=== PATIENT | male | born 1965 | race African-American/Black ===

== ENCOUNTER 2022-08-04 05:12 | Day surgery (SDC) | payer BC ==
[2022-07-31 11:44] VITALS: BMI 24.7
[2022-08-04 10:39] VITALS: RESP 18
[2022-08-04] MEDS ORDERED: MIDAZOLAM HCL 2 MG/2 ML SINGLE DOSE VIAL ONE (13:04)
[2022-08-04] MEDS ORDERED: PROPOFOL 20 ML ONE (13:04)
[2022-08-04] MEDS ORDERED: KETOROLAC TROMETHAMINE 30 MG/1 ML VIAL ONE (13:05)
[2022-08-04 14:08] VITALS: BP 130/89
[2022-08-04 14:37] VITALS: PULSE 68; TEMP 97.2
== END 2022-08-04 14:46 | disposition home or self-care (01) ==
LOC: JASU-SURG 05:12
PROVIDERS: ATTEND Urology
PROC: 0TF4XZZ Fragmentation in Left Kidney Pelvis, External Approach (ICD-10-PCS; principal; 2022-08-04 11:00)
DX: N20.0 Calculus of kidney (principal)